=== PATIENT | female | born 1975 | race Caucasian/White ===

== ENCOUNTER 2021-11-11 17:33 | Emergency (ER) | payer SELFPAY ==
[~2021-11-11] VITALS: Ht 162.6 cm; Wt 64.6 kg
[2021-11-11 18:25] LABS: BASO % 0 % (0-3); EOS % 0 % (0-3); HEMATOCRIT 46.6 % (36.0-47.0); HEMOGLOBIN 15.4 g/dL (12.0-15.5); LYMPH # 0.8 x10^3/uL (1.0-4.8); LYMPH % 6 % (24-48); MEAN CORPUSCULAR HEMOGLOBIN 30 pg (25-35); MEAN CORPUSCULAR HGB CONC 33 g/dL (31-37); MEAN CORPUSCULAR VOLUME 90 fL (79-100); MONO # 0.8 x10^3/uL (0.0-1.1); MONO % 6 % (0-9); NEUT % 88 % (31-73); PLATELET COUNT 284 x10^3/uL (140-400); RED BLOOD COUNT 5.19 x10^6/uL (3.50-5.40); RED CELL DISTRIBUTION WIDTH 13.7 % (11.5-14.5); WHITE BLOOD COUNT 14.7 x10^3/uL (4.0-11.0)
[2021-11-11 18:32] LABS: CALCIUM 9.3 mg/dL (8.5-10.1); CREATININE 0.9 mg/dL (0.6-1.0); GFR 67.7; POTASSIUM 3.4 mmol/L (3.5-5.1)
[2021-11-11 18:55] LABS: % LYMPHS 5 % (24-48); % MONOS 5 % (0-10); % SEGS 90 % (35-66); PLT ESTIMATE ADEQUATE (ADEQUATE)
[2021-11-11 18:56] LABS: BURR CELLS PRESENT
--- NOTE | 2021-11-11 19:28 | ED.ADGEN ---
Past Medical History Additional Past Medical Histor: POLYCYTHEMIA VERA Past Surgical History: Tonsillectomy, Tubal ligation, Other Additional Past Surgical Histo: KNEE General Adult EDM: Chief Complaint: ABDOMINAL PAIN HPI: HPI: Patient is a 46 year old female coming in for right-sided abdominal pain that started last night. Patient states she was eating tacos around midnight which started having for umbilical pain is since become more sharp and radiated to the right lower quadrant. Patient states she has vomited about 3-4 times. Last bowel movement 2 days ago. Denies any urinary complaints. Denies any vaginal bleeding or discharge. Last p.o. intake 7 hours ago Review of Systems: Review of Systems: All other systems within normal limits except for as noted in the HPI Current Medications: Current Medications Medications (Trade) Dose Ordered Sig/Delmy Start Time Stop Time Status Last Admin Dose Admin Fentanyl Citrate (Fentanyl 2ml Vial) 75 mcg 1X ONCE 11/11/21 20:00 11/11/21 20:01 DC 11/11/21 19:50 75 MCG Info (CONTRAST GIVEN -- Rx MONITORING) 1 each PRN DAILY PRN 11/11/21 20:00 11/13/21 19:59 Iohexol (Omnipaque 300 Mg/ml) 75 ml 1X ONCE 11/11/21 20:00 11/11/21 20:01 DC 11/11/21 20:02 75 ML Ondansetron HCl (Zofran) 4 mg 1X ONCE 11/11/21 20:00 11/11/21 20:01 DC 11/11/21 19:50 4 MG Sodium Chloride 1,000 ml @ 1,000 mls/hr 1X ONCE 11/11/21 20:00 11/11/21 20:59 DC 11/11/21 19:50 1,000 MLS/HR Allergies: Allergies: Allergies Coded Allergies Type Severity Reaction Last Updated Verified Sulfa (Sulfonamide Antibiotics) Allergy Severe 11/11/21 Yes amoxicillin Allergy Unknown 11/11/21 Yes cefaclor Allergy Unknown 11/11/21 Yes doxycycline Allergy Unknown 11/11/21 Yes levofloxacin Allergy Unknown 11/11/21 Yes tetracycline Allergy Unknown 11/11/21 Yes Physical Exam: PE: Constitutional: Well developed, well nourished, no acute distress, non-toxic appearance. [] HENT: Normocephalic, atraumatic, bilateral external ears normal, nose normal. [] Eyes: PERRLA, conjunctiva normal, no discharge. [] Neck: No rigidity, supple, no stridor. [] Cardiovascular: Regular rate and rhythm, brisk cap refill [] Lungs & Thorax: Non labored symmetric respirations, no tachypnea or respiratory distress [] Abdomen: Soft, nondistended, right lower quadrant pain with guarding. Skin: Warm, dry, no erythema, no rash. [] Back: Unremarkable Extremities: No deformities, range of motion grossly intact, no lower extremity edema [] Neurologic: Alert and oriented X 3, no focal deficits noted. [] Psychologic: Affect normal, judgement normal, mood normal. [] Current Patient Data: Labs: Laboratory Tests Test 11/11/21 18:15 11/11/21 21:00 White Blood Count 14.7 x10^3/uL (4.0-11.0) H Red Blood Count 5.19 x10^6/uL (3.50-5.40) Hemoglobin 15.4 g/dL (12.0-15.5) Hematocrit 46.6 % (36.0-47.0) Mean Corpuscular Volume 90 fL (79-100) Mean Corpuscular Hemoglobin 30 pg (25-35) Mean Corpuscular Hemoglobin Concent 33 g/dL (31-37) Red Cell Distribution Width 13.7 % (11.5-14.5) Platelet Count 284 x10^3/uL (140-400) Neutrophils (%) (Auto) 88 % (31-73) H Lymphocytes (%) (Auto) 6 % (24-48) L Monocytes (%) (Auto) 6 % (0-9) Eosinophils (%) (Auto) 0 % (0-3) Basophils (%) (Auto) 0 % (0-3) Neutrophils # (Auto) 13.0 x10^3/uL (1.8-7.7) H Lymphocytes # (Auto) 0.8 x10^3/uL (1.0-4.8) L Monocytes # (Auto) 0.8 x10^3/uL (0.0-1.1) Eosinophils # (Auto) 0.0 x10^3/uL (0.0-0.7) Basophils # (Auto) 0.0 x10^3/uL (0.0-0.2) Segmented Neutrophils % 90 % (35-66) H Lymphocytes % 5 % (24-48) L Monocytes % 5 % (0-10) Platelet Estimate Adequate (ADEQUATE) Vikram Cells Present Sodium Level 141 mmol/L (136-145) Potassium Level 3.4 mmol/L (3.5-5.1) L Chloride Level 104 mmol/L (98-107) Carbon Dioxide Level 22 mmol/L (21-32) Anion Gap 15 (6-14) H Blood Urea Nitrogen 18 mg/dL (7-20) Creatinine 0.9 mg/dL (0.6-1.0) Estimated GFR (Cockcroft-Gault) 67.7 Glucose Level 118 mg/dL (70-99) H Calcium Level 9.3 mg/dL (8.5-10.1) Total Bilirubin 0.7 mg/dL (0.2-1.0) Direct Bilirubin 0.1 mg/dL (0.0-0.2) Aspartate Amino Transferase (AST) 13 U/L (15-37) L Alanine Aminotransferase (ALT) 17 U/L (14-59) Alkaline Phosphatase 65 U/L (46-116) Total Protein 8.4 g/dL (6.4-8.2) H Albumin 4.5 g/dL (3.4-5.0) Serum Test, Qualitative Negative (NEG) Urine Collection Type Unknown Urine Color Yellow Urine Clarity Hazy Urine pH 6.0 (<5.0-8.0) Urine Specific [employer] 1.010 (1.000-1.030) Urine Protein Trace mg/dL (NEG-TRACE) Urine Glucose (UA) Negative mg/dL (NEG) Urine Ketones (Stick) 15 mg/dL (NEG) Urine Blood Large (NEG) Urine Nitrite Negative (NEG) Urine Bilirubin Negative (NEG) Urine Urobilinogen Dipstick 0.2 mg/dL (0.2 mg/dL) Urine Leukocyte Esterase Negative (NEG) Urine RBC 20-40 /HPF (0-2) Urine WBC 0 /HPF (0-4) Urine Squamous Epithelial Cells Few /LPF Urine Bacteria 0 /HPF (0-FEW) Urine Mucus Slight /LPF Laboratory Tests 11/11/21 18:15 Laboratory Tests 11/11/21 18:15 Microbiology 11/11/21 Wet Prep - Final, Complete Vital Signs: Vital Signs Date Time Temp Pulse Resp B/P (MAP) Pulse Ox O2 Delivery O2 Flow Rate FiO2 11/11/21 19:50 Room Air 11/11/21 17:33 98.6 100 17 149/82 (104) 97 98.6 EKG: EKG: [] Heart Score: C/O Chest Pain: No Risk Factors: Risk Factors: DM, Current or recent (<one month) smoker, HTN, HLP, family history of CAD, obesity. Risk Scores: Score 0 - 3: 2.5% MACE over next 6 weeks - Discharge Home Score 4 - 6: 20.3% MACE over next 6 weeks - Admit for Clinical Observation Score 7 - 10: 72.7% MACE over next 6 weeks - Early Invasive Strategies Radiology/Procedures: Radiology/Procedures: [] Course & Med Decision Making: Course & Med Decision Making Pertinent Labs and Imaging studies reviewed. (See chart for details) Discussed with patient that the appendix is not visible in the possibility of early appendicitis. There is hematuria but patient's last menstrual period ended over a week ago. Discussed the possibility of having a kidney stone since she is a significant family history of members with kidney stones, and that there is possible that the stone was missed in one of the CT slices. Discussed the ovarian cyst and diagnosis of bacterial vaginosis and will treat according pain. PID unlikely because patient does not have CMT. Discussed return precautions for worsening symptoms or fevers. [] Dragon Disclaimer: Dragon Disclaimer: This electronic medical record was generated, in whole or in part, using a voice recognition dictation system. Departure Departure Impression: Primary Impression: Bacterial vaginosis Additional Impressions: Hematuria Ovarian cyst Disposition: HOME / SELF CARE / HOMELESS Condition: STABLE Referrals: NO PCP (PCP) Patient Instructions: Abdominal Pain, Possible Early Appendicitis Additional Instructions: Use [id number] stool softener such as MiraLAX while taking opioid pain medications Scripts Hydrocodone Bit/Acetaminophen (HYDROCODONE-APAP 5-325 ) 1 Tab Tablet 1 TAB PO PRN Q6HRS PRN for PAIN for 3 Days, #12 TAB 0 Refills Prov: SONAM CERRATO MD 11/11/21 Ondansetron (ONDANSETRON ODT) 4 Mg Tab.rapdis 1 TAB PO PRN Q6-8HRS for nausea, #16 TAB Prov: SONAM CERRATO MD 11/11/21 Metronidazole (METRONIDAZOLE) 500 Mg Tablet 1 TAB PO BID for antibiotic for 7 Days, #14 TAB 0 Refills Prov: SONAM CERRATO MD 11/11/21 Ibuprofen (IBUPROFEN) 600 Mg Tablet 600 MG PO PRN Q6HRS PRN for PAIN, #20 TAB take with food or milk Prov: SONAM CERRATO MD 11/11/21 Problem Qualifiers SONAM CERRATO MD Nov 11, 2021 19:28
[2021-11-11 19:37] LABS: PREG TEST PT QUAL NEGATIVE (NEG)
[2021-11-11 19:40] LABS: ALBUMIN 4.5 g/dL (3.4-5.0); DIRECT BILIRUBIN 0.1 mg/dL (0.0-0.2); TOTAL BILIRUBIN 0.7 mg/dL (0.2-1.0); TOTAL PROTEIN 8.4 g/dL (6.4-8.2)
[2021-11-11] MEDS ORDERED: CONTRAST GIVEN. MC PRN (20:00)
[2021-11-11] MEDS ORDERED: IV NORMAL SALINE 1000ML BAG 1,000 ML IV ONE (20:00)
[2021-11-11] MEDS ORDERED: IOHEXOL 300 MG/ML 100ML VIAL. IV ONE (20:00)
[2021-11-11] MEDS ORDERED: fentaNYL PF VIAL 100 MCG/2 ML VIAL IVP ONE (20:00)
[2021-11-11] MEDS ORDERED: ONDANSETRON PF 4 MG/2 ML VIAL. IVP ONE (20:00)
--- NOTE | 2021-11-11 20:39 | RAD ---
Exam: CT of abdomen and pelvis with contrast INDICATION: Right lower quadrant pain TECHNIQUE: Sequential axial images through the abdomen and pelvis obtained following the administrati on of 75 mL of Omni 300 IV contrast. Sagittal and coronal reformatted images were reconstructed from the axial data and reviewed. Exposure: One or more of the following in the visualized dose reduction techniques were utilized for this examination: 1. Automated exposure control 2. Adjustment of the MA and/or KV according to patient size 3. Use of iterative of reconstructive technique Comparisons: None FINDINGS: Heart size is normal. No pericardial effusion. Visualized lung bases are clear. No pleural effusion. Liver, spleen, pancreas, gallbladder and adrenals are unremarkable. There is a 2 mm nonobstructing right renal calculus. No ureteral calculi. Bladder is decompressed not well evaluated. Uterus is not enlarged. Cystic lesion at the left adnexa which measures 5.2 cm. Moderate amount stool in colon. Appendix is not definitively identified. No inflammatory changes in t he right lower quadrant suggest acute appendicitis. Moderate-sized hiatal hernia. Abdominal aorta has a normal course and caliber. Abdominal vasculature is patent. No enlarged intra-abdominal lymph nodes are identified. No suspicious osseous lesions or acute fractures. IMPRESSION: 1. Cystic lesion at the adnexa bilaterally greater on the left measuring up to 5.2 cm. This likely r epresent cyst within the ovary however incompletely characterized on this study. 2. Appendix is not identified. No inflammatory changes in the right lower quadrant to suggest acute appendicitis. Electronically signed by: Scott Cantu MD (11/11/2021 8:36 PM) [facility]
[2021-11-11 21:24] LABS: BILIRUBIN,URINE NEGATIVE (NEG); CLARITY,URINE HAZY; COLOR,URINE YELLOW; NITRITE,URINE NEGATIVE (NEG); PROTEIN,URINE TRACE mg/dL (NEG-TRACE); UROBILINOGEN,URINE 0.2 mg/dL (0.2 mg/dL)
[2021-11-11 21:25] LABS: RBC,URINE 20-40 /HPF (0-2)
[2021-11-11 21:26] LABS: BACTERIA,URINE 0 /HPF (0-FEW); WBC,URINE 0 /HPF (0-4)
--- NOTE | 2021-11-11 21:53 | RAD ---
EXAM: ULTRASOUND PELVIS 11/11/2021 INDICATION: Reason: RLQ pain / Spl. Instructions: / History: . COMPARISON: None available. TECHNIQUE: Transabdominal and transvaginal sonography was performed. FINDINGS: Uterus measures 7.3 x 5.9 x 3.6 cm. No focal uterine mass. Endometrial complex is normal thickness fo r age measuring 8 mm. Right ovary measures 3.2 x 1.5 x 1.4 cm. Left ovary measures 5.0 x 3.1 x 3.3 cm. There is a heterogen eous cystic focus at the left ovary that measures up to 4.8 cm without internal color flow. There is also a small simple cyst at the right ovary measuring 2.0 cm. No significant free fluid. IMPRESSION: 1. Heterogeneous cystic focus at the left ovary measuring up to 4.8 cm, indeterminate. This could rep resent complex or hemorrhagic cyst or endometrioma. Follow-up imaging to ensure stability/resolution. 2. Small simple cyst or dominant follicle at the right ovary measuring 2.0 cm. Electronically signed by: Dirk Crane MD (11/11/2021 9:51 PM) [facility]
[2021-11-11 22:19] VITALS: BP 104/56
[2021-11-11] MEDS ORDERED: oxyCODONE/APAP 7.5/325 1 TAB TABLET PO ONE (22:30)
[2021-11-11] MEDS ORDERED: IBUP-1007 PO (22:34)
[2021-11-11] MEDS ORDERED: ONDA4TAB12 PO (22:34)
[2021-11-11] MEDS ORDERED: METR-34 PO (22:34)
[2021-11-11] MEDS ORDERED: HYDR-2759 PO (22:34)
[2021-11-11] MEDS ORDERED: HYDR-2761 PO (22:36)
[2021-11-15 17:11] LABS: GC PROBE Negative (Negative)
== END 2021-11-11 22:59 | disposition home or self-care (01) ==
LOC: ER 17:33 → EDBD 17:33 → ER 22:59
DX: N83.201 Unspecified ovarian cyst, right side (principal); R31.9 Hematuria, unspecified; N76.0 Acute vaginitis; B96.89 Other specified bacterial agents as the cause of diseases classified elsewhere; Z88.1 Allergy status to other antibiotic agents; Z88.8 Allergy status to other drugs, medicaments and biological substances; Z88.2 Allergy status to sulfonamides
CPT/HCPCS: 36415; 74177; 76830; 76856; 80048; 80076; 81001; 84703; 85007; 85025; 87491; 87591; 96361; 96374; 96375; 99285; J2405; J3010; J7030; Q0111; Q9967